=== PATIENT | male | born 1990 | race Two or more races ===

== ENCOUNTER → 2018-06-13 | Outpatient (REF) ==
--- NOTE | 2018-06-13 11:53 | RADIOLOGY IMAGING REPORT ---
FACILITY: [facility] - [place] PATIENT NAME: Tyrel Schwarz : 1990 MR: [id number] V: [id number] EXAM DATE: ORDERING PHYSICIAN: SAMANTHA LAMAR TECHNOLOGIST: Location: [facility] - [place] Patient: Tyrel Schwarz : 1990 Visit/Account:[id number] Date of Sevice: 06/13/2018 FOOT 3 VIEWS RIGHT Three-view examination right foot. FINDINGS: No acute osseous pathology. Joint space well maintained. Soft tissues unremarkable. No evidence of foreign material. IMPRESSION: 1. Negative right foot for acute bony pathology. No soft tissue abnormalities noted Report Dictated By: Royal Sun MD at 06/13/2018 11:47 AM Report E-Signed By: Royal Sun MD at 06/13/2018 11:49 AM WSN:[id number]
== END ==
LOC: RAD 10:33
PROVIDERS: ATTEND Nurse Practitioner
DX: S91.331A Puncture wound without foreign body, right foot, initial encounter (principal); W45.0XXA Nail entering through skin, initial encounter